=== PATIENT | male | born 1980 | race Caucasian/White ===

== ENCOUNTER 2022-09-04 07:56 | Outpatient (CLI) | payer OTHER, SELFPAY | END 2022-09-04 07:57 | disposition home or self-care (01) | LOC: INJ CL 07:57 | PROVIDERS: PCP Family Medicine; Visit Provider Family Medicine | DX: M51.26 Other intervertebral disc displacement, lumbar region (principal); M54.16 Radiculopathy, lumbar region | CPT/HCPCS: 64483; J1100; Q9966 ==

== ENCOUNTER 2022-10-02 08:03 | Outpatient (CLI) | payer OTHER, SELFPAY | END 2022-10-02 08:04 | disposition home or self-care (01) | LOC: INJ CL 08:04 | PROVIDERS: PCP Family Medicine; Visit Provider Family Medicine | DX: M51.26 Other intervertebral disc displacement, lumbar region (principal); M54.16 Radiculopathy, lumbar region | CPT/HCPCS: 64483; J0702; Q9966 ==

== ENCOUNTER 2023-02-12 16:00 | Outpatient (RCR) | payer OTHER, SELFPAY ==
--- NOTE | 2022-12-19 09:26 | PT.OPDN ---
PT [facility] Daily Note PT [facility] Outpatient Daily Note Start: 05/30/22 07:25 Freq: Status: Active Protocol: Document 12/18/22 16:42 CJT (Rec: 12/18/22 17:47 CJT [id number]) E-signed By Torsten Harvey, PT PT OP Daily Progress Note Visit Information Note Type Recert/Progress Note Visit Number [id number] Insurance Authorized Visits 99 Physician Authorized Visits eval and treat Insurance Information Recert Due Date 02/15/23 Insurance Name [employer] Medical Diagnosis M54.5 - low back pain Treating Diagnosis M54.42 - low back pain with L side sciatica M62.83 - back spasm Referring Anai Ervin MD Subjective Subjective Pt doing very well. Was able to play basketball against his daughters [employer] team and this felt okay. Was a little sore from running but no reaggravation of symptoms. Pts current symptoms include occasional pain in lateral L leg, usually at night, as well as occasional L SIJ/posterior glute/piriformis pain that he rates as a 1-210. Has been working on walking n the treadmill up to 40 minutes at a time now up to 11% grade and this is going well. Pt scheduled f/u appointment with Dr. Boone to discuss his progress and potential need for MRI. Pain Comments -2 Home Exercise Home Exercise Comments [id number] Objective Other/Pertinent Objective Lumbar ROM Extension - 23 - some tightness/pinching in low back Flexion - can reach toes with knees bent: hip hinge approx 95 degrees R/L Side Bend - 29/29 R/L Rotation - no impairments B R Hip ROM Flexion - 120 Abduction - 45 IR/ER - 40/47 Extension - 10 L Hip ROM Flexion - 120 Abduction - 45 IR/ER - 33/43 Extension - 10 R ankle PF/DF(kf)/DF(ke) - 55/ 10/6 L ankle PF/DF(kf)/DF(ke) - 55/ 10/6 Upper Abdominals - DNT Lower Abdominals - DNT R Hip Strength - 5/5 MMT for all L Hip Strength - 5/5 MMT for all R knee Extension - 5/5 MMT R Knee Flexion - 5/5 MMT L knee Extension - 5/5 MMT L knee Flexion - 5/5 MMT R ankle DF - 5/5 MMT L ankle DF - 5/5 MMT Palpation: pt reports pain/ tenderness with palpation to L glute min, glute med, piriformis Gait: no impairments noted Slump: slight pain in L SI with R knee extension SLR: negative CSLR: negative FADIR: negative B KHUSHBOO: negative B Actual LLD: 91.5/92.5cm Apparent LLD: 104.5cm ea Patient Instructed in Risks/Benefits Yes Therapeutic Exercise Therapeutic Exercise Minutes (minutes) 30 Therapeutic Exercise: To Restore Treadmill: 5 minutes, 3mph Functional Status Foam Roll: T-spine + extensions, piriformis, quads Dynamic W/U: jogging, grapevine, shuffle, lunges Tall kneel hip hinge with band 3 x 15 Standing clamshell with medium band 3 x 10 ea Jonny chair 3 x 10 Treatment Minutes Untimed Code Treatment Minutes 20 Timed Code Treatment Minutes 30 Total Treatment Time 50 Billing Units Therapeutic Exercise Units 2 Assessment/Impression Assessment/Impression Bear has showed excellent progress in his symptoms and function over the past two months. He is having far less pain in his L glute region as well as down his L leg. He continues to report increased function in regard to exercise , playing with his kids, completing chores at home, etc . Testing today is negative for disc herniation with exception of R slump test which caused slight increase in pain at pts L SIJ, which is a bit unusual. Bear's strength is full in B LEs including L ankle dorsiflexion which had significant loss of strength when Bear had his setback in June/July. While Bear continues to gain confidence in his function and movement, we have agreed to continue PT sessions every other week for the next 8 weeks to allow Bear to continue to progress under my guidance. PT sessions will continue to focus on progressing Bear's body mechanics to allow for improved strength and decrease his risk of reinjury. We will also continue to gradually progress his athletic movements including plyometrics, running/sprinting , and ballistic movements as able to allow him to fully participate in sports with his children. Recommend continued PT sessions every other week for additional 8 weeks - 4 more sessions total. Plan of Care Physical Therapy Goals STG - To be completed in 2-3 weeks: 1. Pt will report reduction in back pain by factor of 2 so that they may perform all ADLs with tolerable level of pain. MET 2. Pt will demonstrate ability to perform pelvic tilt with good coordination as indication of appropriate firing of pelvic and lumbar stabilizing muscles to provide greater support for pelvis and lumbar spine. MET 3. Pt will demonstrate equal lumbar lateral flexion bilaterally without report of pain/tightness to assist with donning/doffing shoes bilaterally. MET 4. Pt will demonstrate 5/5 MMT for all LE motions without reproduction of pain as indication of reduced nerve root impingement. 5. Pt will report ability to tolerate 30+ minutes of sitting/standing so that they may shop for groceries at store/sit for meetings at work . MET 6. Pt will demonstrate ability to perform hip hinge and squatting activities with proper form to reduce risk of reaggravation of injury. MET LTG - To be completed in 8-12 weeks: 1. Pt to be I with HEP so that they may I manage progression of symptoms. 2. Pt will demonstrate ability to bend forward to picker and sorter load and unload shoe off of ground without increase in back pain so that they may perform similar activities at home without return of symptoms. MET 3. Pt will demonstrate 5/5 MMT for both upper and lower abdominals to provide greater support to pelvis and lumbar spine. 4. 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 5. Pt will demonstrate ability to perform 3 x 10 KB deadlifts up to 45# from floor so that he may return to performing this activity I for recreational exercise. 6. Pt will perform 10 squat jumps with good medial/lateral control of both knees to show improved strength and coordination with ballistic movements to reduce risk of injury during sport activities . Daily Plan of Care Change POC; See Comments Daily Plan of Care Comments Every other week for additional 8 weeks - 4 sessions total
== END 2023-05-30 10:42 | disposition home or self-care (01) ==
PROVIDERS: PCP Nurse Practitioner Family; Visit Provider Nurse Practitioner Family
DX: M54.50 Low back pain, unspecified (principal); Z51.89 Encounter for other specified aftercare
CPT/HCPCS: 97012; 97032; 97110; 97140; 97161; 97530